=== PATIENT | male | born 1935 | race Caucasian/White ===

== ENCOUNTER 2020-08-15 12:54 | Emergency (ER) | payer MEDICARE ==
[~2020-08-15] VITALS: Ht 177.8 cm; Wt 81.6 kg
== END 2020-08-15 14:14 | disposition home or self-care (01) ==
LOC: ER 13:56
DX: I10 Essential (primary) hypertension (principal); Z95.810 Presence of automatic (implantable) cardiac defibrillator; Z95.2 Presence of prosthetic heart valve
CPT/HCPCS: 99282

== ENCOUNTER 2022-08-24 18:26 | Emergency (ER) | payer MEDICARE ==
[~2022-08-24] VITALS: Ht 177.8 cm; Wt 81.6 kg
[2022-08-24] MEDS ORDERED: HYDROCODONE/APAP 5MG-325MG TAB PO ONE (19:00)
[2022-08-24] MEDS ORDERED: CYCLOBENZAPRINE HCL 10 MG TAB PO ONE (19:00)
[2022-08-24] MEDS ORDERED: METHOCARBAMOL750 MG PO (20:46)
[2022-08-24] MEDS ORDERED: ACETAMINOPHEN-1 EAC4 PO ×4 (20:46→21:13)
[2022-08-24] MEDS ORDERED: PREDNISONE50 MG PO (20:46)
[2022-08-24] MEDS ORDERED: Morphine 4mg INJECTION 4 MG/ML INJ IV ONE (21:00)
[2022-08-24] MEDS ORDERED: DEXAMETHASONE 10MG/ML PF INJ IM ONE (21:00)
[2022-08-24 21:16] VITALS: BP 136/71
[2022-08-24] MEDS ORDERED: DEXAMETHASONE SOD PHOS INJ 4 MG/ML SDV ONE (21:17)
== END 2022-08-24 21:13 | disposition home or self-care (01) ==
LOC: ER 18:30
DX: M54.41 Lumbago with sciatica, right side (principal); I10 Essential (primary) hypertension; E78.5 Hyperlipidemia, unspecified; Z95.810 Presence of automatic (implantable) cardiac defibrillator; Z95.4 Presence of other heart-valve replacement
CPT/HCPCS: 72110; 73502; 99283; J1100; J2270

== ENCOUNTER → 2024-03-07 | Day surgery (SDC) | payer MEDICARE ==
[2024-03-06 11:14] LABS: BASOPHILS # (AUTO) 0.1 (0.0-0.1); BASOPHILS % 0.7 % (0.0-1.0); EOSINOPHILS # (AUTO) 0.4 (0.0-0.4); EOSINOPHILS % 3.8 % (0.0-6.0); HEMATOCRIT 45.9 % (38.2-49.6); HEMOGLOBIN 14.7 g/dL (14.0-18.0); LYMPHOCYTES # (AUTO) 1.4 (1.0-3.2); LYMPHOCYTES % 12.4 % (18.0-39.1); MEAN CORPUSCULAR HEMOGLOBIN 31.1 pg (28-32); MEAN CORPUSCULAR VOLUME 97.2 fL (81-99); MONOCYTES # (AUTO) 1.2 (0.2-0.8); MONOCYTES % 10.5 % (4.4-11.3); NEUTROPHILS # (AUTO) 8.1 (2.1-6.9); NEUTROPHILS % 72.4 % (38.7-80.0); PLATELET COUNT 212 x10e3/uL (140-360); RED BLOOD COUNT 4.72 x10e6/uL (4.3-5.7); RED CELL DISTRIBUTION WIDTH 14.4 % (11.7-14.4); WHITE BLOOD COUNT 11.17 x10e3/uL (4.8-10.8)
[~2024-03-07] MED LIST: ACETAMINOPHEN-1 EAC4 PO; ASPIRIN81 MG PO; ATORVASTATIN CA10 MG PO; CARVEDILOL12.5 MG PO; CLOPIDOGREL75 MG PO; DEXMEDETOMIDINE HCL 200 MCG/2 ML VIAL ONE; FUROSEMIDE40 MG PO; HYOSCYAMINE SULFATE 0.5 MG/ML INJ ONE; ISOSORBIDE MONO30 MG PO; LACTATED RINGER'S 1,000 ML ONE; LIDOCAINE HCL 2% LOCAL INJ 5 ML SDV VIAL INJ ONE; LISINOPRIL20 MG PO; METHOCARBAMOL750 MG PO; POTASSIUM CHLO10 ME1 PO; PREDNISONE50 MG PO; PROPOFOL IV EMULSION 10 MG/ML 20 ML VIAL ONE; PROPOFOL IV EMULSION 10 MG/ML 50 ML VIAL IV ONE; TRELEGY ELLIPT1 EAC1; VENTOLIN HFA18 GM INH
[2024-03-07 13:25] VITALS: TEMP 97.5
[2024-03-07 13:55] VITALS: BP 107/56; PULSE 61; RESP 16; O2SAT 99
== END | disposition home or self-care (01) ==
LOC: OR 11:28
PROVIDERS: ATTEND Internal Medicine Gastroenterology
DX: D64.9 Anemia, unspecified (principal); D12.2 Benign neoplasm of ascending colon; D12.5 Benign neoplasm of sigmoid colon; K59.00 Constipation, unspecified; K31.89 Other diseases of stomach and duodenum; K31.811 Angiodysplasia of stomach and duodenum with bleeding; K29.80 Duodenitis without bleeding; K29.70 Gastritis, unspecified, without bleeding; K57.30 Diverticulosis of large intestine without perforation or abscess without bleeding; K64.8 Other hemorrhoids; I25.10 Atherosclerotic heart disease of native coronary artery without angina pectoris; I11.0 Hypertensive heart disease with heart failure; I50.9 Heart failure, unspecified; J44.9 Chronic obstructive pulmonary disease, unspecified; E78.5 Hyperlipidemia, unspecified; F17.210 Nicotine dependence, cigarettes, uncomplicated; Z01.810 Encounter for preprocedural cardiovascular examination; Z01.812 Encounter for preprocedural laboratory examination; Z79.82 Long term (current) use of aspirin; Z79.02 Long term (current) use of antithrombotics/antiplatelets; Z79.899 Other long term (current) drug therapy; Z95.5 Presence of coronary angioplasty implant and graft; Z95.0 Presence of cardiac pacemaker
CPT/HCPCS: 36415; 43239; 45378; 85025; 88305; 88342; 93005; J1980; J2001; J2470